=== PATIENT | male | born 1985 | race Two or more races ===

== ENCOUNTER 2025-01-28 00:48 | Inpatient (IN) | payer OTHER ==
[~2025-01-28] VITALS: Ht 157.5 cm; Wt 162.9 kg
[2025-01-28] VITALS (8 sets, daily range): BP systolic 133–145; BP diastolic 72–84; PULSE 68–97; RESP 16–24; TEMP 97.6–98.9; O2SAT 94–97
--- NOTE | 2025-01-28 01:15 | ED.PDOC ---
HPI Comments 39-year-old male with a history of CAD, mi status post stent x3, morbid obesity, hypertension, diabetes and dyslipidemia, brought in by self complaining of chest pain. Patient states he was at rest at his desk at work several hours ago when he developed left-sided chest pain, intermittent, pressure-like, radiating to his left arm, associated with headaches and shortness of breath. Patient states he had similar symptoms with his previous KS. Patient also notes a painful and itchy rash on his right leg that he noticed yesterday morning. Chief Complaint: Chest Pain Time Seen by MD: :14 Reviewed Notes: Nurses Notes Allergies: Coded Allergies: Lisinopril (Verified Allergy, Unknown, 02/18/16) Home Meds No Active Prescriptions or Reported Meds Information Source: Patient Mode of Arrival: Ambulatory Severity: Moderate Timing: Hours Duration: Intermittent Prehospital treatment: None Location: Chest (L) Radiation: Arm (L) Quality: Pressure, Tightness Onset: At Rest Cardiac Risk Factors: Hyperlipidemia, HTN, Diabetes PE Risk Factors: None History of: Similar pain in past, KS Associated Signs and Symptoms: SOB Past Medical History PAST MEDICAL HISTORY: CAD, DM, High Lipids, HTN, KS Surgical History: PTCA Family History Family History: Reviewed,noncontributory to illness Social History Smoker: Non-Smoker Alcohol: Rarely Drugs: Marijuana Lives In: Home Constitutional: denies: chills, diaphoresis, fatigue, fever, malaise, sweats, weakness, others EENTM: denies: blurred vision, double vision, ear bleeding, ear discharge, ear drainage, ear pain, ear ringing, eye pain, eye redness, hearing loss, mouth pain, mouth swelling, nasal discharge, nose bleeding, nose congestion, nose pain, photophobia, tearing, throat pain, throat swelling, voice changes, others Respiratory: reports: SOB at rest, shortness of breath; denies: cough, hemoptysis, orthopnea, SOB with excertion, stridor, wheezing, others Cardiovascular: reports: chest pain; denies: dizzy spells, diaphoresis, Dyspnea on exertion, edema, irregular heart beat, left arm pain, lightheadedness, palpitations, PND, syncope, others Gastrointestinal: denies: abdomen distended, abdominal pain, blood streaked bowels, constipated, diarrhea, dysphagia, difficulty swallowing, hematemesis, melena, nausea, poor appetite, poor fluid intake, rectal bleeding, rectal pain, vomiting, others Genitourinary: denies: burning, dysuria, flank pain, frequency, hematuria, incontinence, penile discharge, penile sore, pain, testicle pain, testicle swelling, urgency, others Neurological: reports: headache; denies: dizziness, fainting, left sided numbness, left sided weakness, numbness, paresthesia, pre-existing deficit, right sided numbness, right sided weakness, seizure, speech problems, tingling, tremors, weakness, others Musculoskeletal: denies: back pain, gout, joint pain, joint swelling, muscle pain, muscle stiffness, neck pain, others Integumetry: reports: rash (Right lower leg); denies: bruises, change in color, change in hair/nails, dryness, laceration, lesions, lumps, wounds, others Allergic/Immunocompromised: denies: Difficulty Healing, Frequent Infections, Hives, Itching, others Hematologic/Lymphatic: denies: anemia, blood clots, easy bleeding, easy bruising, swollen glands, others Endocrine: denies: excessive hunger, excessive sweating, excessive thirst, excessive urination, flushing, intolerance to cold, intolerance to heat, unexplained weight gain, unexplained weight loss, others Psychiatric: denies: anxiety, bipolar disorder, depression, hopeless, panic disorder, schizophrenia, sleepless, suicidal, others Physical Exam General Appearance: No Apparent Distress, Obese HEENT: Other (Pupils and face symmetric. Moist mucous membranes.) Neck: Full Range of Motion, Normal Inspection Respiratory: Lungs Clear, No Accessory Muscle Use, No Respiratory Distress, Normal Breath Sounds Cardiovascular: No Edema, No JVD, Regular Rate/Rhythm Breast Exam: Deferred Gastrointestinal: Non Tender, Soft Genitalia: Deferred Pelvic: Deferred Rectal: Deferred Extremities: Normal range of motion, No pedal edema, Other (Erythematous patchy raised rash localized on the anterior aspect of the right leg) Neurologic: Alert (Oriented x4), Normal Affect, Normal Mood, Other (Ambulatory) Cerebellar Function: NOT DONE Reflexes: NOT DONE Skin: Dry, Rash (Mildly tender erythematous patchy raised rash on the anterior aspect of the right leg. No edema, fluctuance or discharge.), Warm Lymphatic: NOT DONE EKG EKG : Comments Sinus tach, rate 141, normal intervals, left axis deviation, ST elevation in inferior leads with inferior Q-waves, other nonspecific T change. Was a procedure done? Was a procedure done?: No CP Differential Dx Differential Diagnosis: Angina, Anxiety / Panic Attack, KS, Pulmonary Embolus Differential Diagnosis: CHF Differential Diagnosis: Angina, Chest Wall Pain, Costochondritis, Esophageal reflux/spasm, Gastritis, Myocardial Infarction, Pericarditis, Pneumonia Comment Cellulitis, folliculitis, contact dermatitis, among others X-Ray, Labs, Meds, VS Vital Signs Date Time Temp Pulse Resp B/P (MAP) Pulse Ox O2 Delivery O2 Flow Rate FiO2 01/28/25 03:57 92 01/28/25 02:44 95/42 01/28/25 02:04 137 20 122/75 (91) 93 01/28/25 02:03 122/75 01/28/25 01:47 135 01/28/25 00:53 141 01/28/25 00:50 101.0 140 20 148/97 (114) 96 101.0 Lab Test 01/28/25 01:44 01/28/25 01:40 01/28/25 00:58 01/28/25 00:52 Range/Units Troponin I High Sensitivity 9 8 </=54 ng/L Lactic Acid Level 2.0 0.4-2.0 mmol/L POC Glucose 154 H 70-106 mg/dl White Blood Count 21.0 H 4.4-10.8 10^3/uL Red Blood Count 6.31 H 4.5-5.90 10^6/uL Hemoglobin 18.4 H 13.5-17.5 g/dL Hematocrit 53.8 H 41.0-53.0 % Mean Corpuscular Volume 85.3 80.0-100.0 fL Mean Corpuscular Hemoglobin 29.1 28.0-32.0 pg Mean Corpuscular Hemoglobin Concent 34.1 32.0-36.0 g/dL Red Cell Distribution Width 14.1 11.8-14.3 % Platelet Count 229 140-450 10^3/uL Mean Platelet Volume 8.6 6.9-10.8 fL Neutrophils (%) (Auto) 89.5 H 37.0-80.0 % Lymphocytes (%) (Auto) 6.2 L 10.0-50.0 % Monocytes (%) (Auto) 3.6 0.0-12.0 % Eosinophils (%) (Auto) 0.4 0.0-7.0 % Basophils (%) (Auto) 0.3 0.0-2.0 % Neutrophils # (Auto) 18.8 H 1.6-8.6 10 ^3/uL Lymphocytes # (Auto) 1.3 0.4-5.4 10 ^3/uL Monocytes # (Auto) 0.8 0-1.3 10 ^3/uL Eosinophils # (Auto) 0.1 0-0.8 10 ^3/uL Basophils # (Auto) 0.1 0-0.2 10 ^3/uL Nucleated Red Blood Cells 0.2 % Prothrombin Time 11.3 9.3-11.8 sec Prothrombin Time INR 1.07 0.9-1.15 Activated Partial Thromboplast Time 28.3 24.5-34.5 SEC Sodium Level 134 L 136-145 mmol/L Potassium Level 4.4 3.5-5.1 mmol/L Chloride Level 98 98-107 mmol/L Carbon Dioxide Level 27 20-31 mmol/L Anion Gap 9 5-15 Blood Urea Nitrogen 13 9-23 mg/dL Creatinine 1.06 0.700-1.30 mg/dL Glomerular Filtration Rate Calc 90 >90 mL/min BUN/Creatinine Ratio 12.3 10.0-20.0 Serum Glucose 152 H 74-106 mg/dL Calcium Level 9.9 8.7-10.4 mg/dL B-Type Natriuretic Peptide 36.20 0-100 pg/mL Test 01/28/25 00:50 Range/Units Urine Color Light-yellow Yellow Urine Clarity Clear Clear Urine pH 6.0 5.0-9.0 Urine Specific [place] 1.007 1.001-1.035 Urine Protein Trace H Negative Urine Ketones Negative Negative Urine Blood Negative Negative /uL Urine Nitrite Negative Negative Urine Bilirubin Negative Negative Urine Urobilinogen Normal Negative mg/dL Urine Leukocyte Esterase Negative Negative /uL Urine RBC <1 0 - 3 /hpf Urine Microscopic WBC < 1 0-3 /HPF Urine Squamous Epithelial Cells None seen <5 /hpf Urine Bacteria None seen None Seen /hpf Urine Glucose Normal Normal mg/dL Current Medications Medications (Trade) Dose Ordered Sig/Shakeel Route Start Time Stop Time Status Last Admin Aspirin 325 mg ONCE ONCE PO 01/28/25 01:15 01/28/25 01:16 DC 01/28/25 01:34 Nitroglycerin (Nitro-Bid) 1 pkg ONCE ONCE TD 01/28/25 01:15 01/28/25 01:16 DC 01/28/25 02:03 Acetaminophen/ Hydrocodone Bitart ([place] 5/325MG Tab) 1 tab ONCE ONCE PO 01/28/25 01:15 01/28/25 01:16 DC 01/28/25 01:35 Clindamycin Phosphate 50 ml @ 50 mls/hr ONCE ONCE IV 01/28/25 01:15 01/28/25 02:14 DC 01/28/25 02:00 Acetaminophen (Tylenol Tablet) 650 mg ONCE ONCE PO 01/28/25 02:45 01/28/25 02:46 DC 01/28/25 02:51 Sodium Chloride 1,650 ml @ 1,650 mls/hr ONCE ONCE IV 01/28/25 03:00 01/28/25 03:59 DC 01/28/25 02:57 PROCEDURE(s): CXRP - CHEST PORTABLE REASON: cp ORDER NUMBER(s): [id number], ACCESSION NUMBER(s): [id number] EXAM: XY CHEST PORTABLE CLINICAL HISTORY: cp TECHNIQUE: Single AP view of the chest WID: COMPARISON: None FINDINGS: Lines and tubes: None Chest: The heart size and pulmonary vasculature is within normal limits. No pleural effusion, pneumothorax, or consolidation. The osseous structures are grossly intact. IMPRESSION: No acute cardiopulmonary abnormality. X-Ray, Labs, Meds, VS Comment 39-year-old male with a history of hypertension, diabetes, dyslipidemia, CAD, [place] status post stent x3 complaining of chest pain and also reporting a right leg rash Vitals remarkable for temperature 101, heart rate 140, BP 148/97 Exam remarkable for tachycardia and a right leg erythematous raised rash Rhythm strip independently interpreted by me: Sinus tach, rate 141, no ectopy. Chest x-ray unremarkable CBC remarkable for WBC 21, metabolic panel remarkable for sodium 134, troponin negative x2, BNP normal, lactate normal and UA unremarkable Patient treated with the following in the ED: Aspirin 325 mg p.o., nitro bid 1/2 inch to chest wall, [place] 5/325 mg p.o., Tylenol 650 mg p.o. , clindamycin 900 mg IV, cefepime 2 g IV, 30 cc/kilogram normal saline bolus IV On re-evaluation, tachycardia has resolved, patient is afebrile with stable vitals. Chest pain has improved. Plan is to admit the patient Cardiology evaluation and IV antibiotics. Time of 1ST Reevaluation: 01:10 Reevaluation 1ST: Unchanged Time of 2ND Reevaluation: 02:47 Reevaluation 2ND: Improved Patient Education/Counseling: Diagnosis, Treatment Family Education/Counseling: No Family Present SEPSIS Sepsis Screen Date sepsis recognized/suspect: Jan 28, 2025 Time Sepsis recognized/suspect: 02:45 Physician Orders Electrocardigram (01/28/25 00:50) Electrocardigram (01/28/25 01:50) Electrocardigram (01/28/25 03:50) Chest Portable (01/28/25 01:09) Blood Culture (01/28/25 01:09) Cefepime 1gm/ 50ml (Maxipime 1gm/50ml) (01/28/25 06:00) Notify Md If Map <65 Or Bp<90 (01/28/25 02:41) If Map<65 Start Vasopressor (01/28/25 02:41) Vital Signs Date Time Temp Pulse Resp B/P (MAP) Pulse Ox O2 Delivery O2 Flow Rate FiO2 01/28/25 03:57 92 01/28/25 02:44 95/42 01/28/25 02:04 137 20 122/75 (91) 93 01/28/25 02:03 122/75 01/28/25 01:47 135 01/28/25 00:53 141 01/28/25 00:50 101.0 140 20 148/97 (114) 96 101.0 Laboratory Tests Test 01/28/25 00:52 01/28/25 01:40 White Blood Count 21.0 10^3/uL (4.4-10.8) H Lactic Acid Level 2.0 mmol/L (0.4-2.0) Medications Medications Dose Ordered Sig/Shakeel Route Start Time Stop Time Status Last Admin Dose Admin Acetaminophen 650 mg ONCE ONCE PO 01/28/25 02:45 01/28/25 02:46 DC 01/28/25 02:51 Acetaminophen/ Hydrocodone Bitart 1 tab ONCE ONCE PO 01/28/25 01:15 01/28/25 01:16 DC 01/28/25 01:35 Aspirin 325 mg ONCE ONCE PO 01/28/25 01:15 01/28/25 01:16 DC 01/28/25 01:34 Clindamycin Phosphate 50 ml @ 50 mls/hr ONCE ONCE IV 01/28/25 01:15 01/28/25 02:14 DC 01/28/25 02:00 Nitroglycerin 1 pkg ONCE ONCE TD 01/28/25 01:15 01/28/25 01:16 DC 01/28/25 02:03 Sodium Chloride 1,650 ml @ 1,650 mls/hr ONCE ONCE IV 01/28/25 03:00 01/28/25 03:59 DC 01/28/25 02:57 Reassessment Post Fluid SEPSIS FOCUS EXAM(REASSESSMENT Sepsis reassessment focused exam completed. Date: 01/28/25 Time 03:44 Departure 1 Departure Time of Disposition: 04:00 Impression: Primary Impression: Chest pain with high risk for cardiac etiology Additional Impression: Cellulitis of right lower extremity Disposition: ADMITTED INPATIENT Admit to: Tele Condition: Guarded e-Prescriptions No Active Prescriptions or Reported Meds Critical Care Note Critical Care Time?: Yes (35 min-critical care time only) Critical care comment: Critical care time including multiple bedside re-evaluations, review of lab and imaging studies, and discussion of the case with the accepting provider. Patient is high risk for hemodynamic and/or metabolic decompensation. Stability Stability form required: No Heart Score Heart Score: Heart Score Response (Comments) Value History Moderate Suspicious [address]-Deviation 2 Age <45 0 Risk Factors >3 or Hx ASHD 2 Troponin Normal limit 0 Total 5 I personally scribed for COLLEEN ROWE MD ([email or web address]) on 01/28/25 at 01:15. Electronically submitted by Vincent Tillman ([email or web address]). COLLEEN ROWE MD Jan 28, 2025 01:15
[2025-01-28 01:26] LABS: Hemoglobin 18.4 g/dL (13.5-17.5)
[2025-01-28 01:28] LABS: Hematocrit 53.8 % (41.0-53.0); Mean Corpuscular Hemoglobin 29.1 pg (28.0-32.0); Mean Corpuscular Volume 85.3 fL (80.0-100.0); Nucleated Red Blood Cells % 0.2 %
[2025-01-28 01:32] LABS: Chloride 98 mmol/L (98-107); Potassium 4.4 mmol/L (3.5-5.1)
[2025-01-28 01:33] LABS: Anion Gap 9 (5-15); Carbon Dioxide 27 mmol/L (20-31)
[2025-01-28 01:34] LABS: Calcium 9.9 mg/dL (8.7-10.4)
[2025-01-28] MEDS: HYDROcodone-ACET 5/325MG TAB PO ONE (01:35)
[2025-01-28 01:38] LABS: BUN/Creatinine Ratio 12.3 (10.0-20.0); Blood Urea Nitrogen 13 mg/dL (9-23)
[2025-01-28 01:39] LABS: Glucose 152 mg/dL (74-106); Sodium 134 mmol/L (136-145)
[2025-01-28] MEDS: CLINDAMYCIN 900MG IV 50 ML IV ONE (02:00)
[2025-01-28] MEDS: NITROGLYCERIN 2% OINT 1GM PKG TD ONE (02:03)
--- NOTE | 2025-01-28 02:30 | DVH ---
EXAM: XY CHEST PORTABLE CLINICAL HISTORY: cp TECHNIQUE: Single AP view of the chest WID: COMPARISON: None FINDINGS: Lines and tubes: None Chest: The heart size and pulmonary vasculature is within normal limits. No pleural effusion, pneumothorax, or consolidation. The osseous structures are grossly intact. IMPRESSION: No acute cardiopulmonary abnormality.
[2025-01-28] MEDS: ACETAMINOPHEN 325 MG TAB PO ONE (02:51)
[2025-01-28] MEDS: SODIUM CHLORIDE 0.9% 1,650 ML IV ONE (02:57)
[2025-01-28 03:07] LABS: INR 1.07 (0.9-1.15); Partial Thromboplastin Time 28.3 SEC (24.5-34.5); Prothrombin Time 11.3 sec (9.3-11.8)
[2025-01-28 05:26] LABS: Urine Protein, UAD TRACE (Negative)
[2025-01-28] MEDS: CEFEPIME 1GM/ 50ML 50 ML IV SCH (06:37)
--- NOTE | 2025-01-28 06:40 | ECG ---
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
--- NOTE | 2025-01-28 06:41 | ECG ---
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
--- NOTE | 2025-01-28 06:41 | ECG ---
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
--- NOTE | 2025-01-28 08:10 | DVHHP2 ---
History of Present Illness Reason for Visit: Chest pain with high risk for cardiac etiology History of Present Illness Patient is a 39-year-old male morbidly obese with past medical history of Coronary artery disease, DM, hyperlipidemia, hypertension, and [place] who presented to [facility] ED with complaint of chest pain. Patient reports he has been experiencing left-sided chest pain at rest, intermittent, pressure- like, radiating to his left arm, associated with headache, shortness of breaths, getting worse that prompted this visit. Patient was seen and evaluated in the ED, laboratory data shows WBC 21.0, hemoglobin 18.4, hematocrit 53.8, sodium 134, potassium 4.4, BUN 13, creatinine 1.06, glucose 152, calcium 9.9, troponin 9, BNP 36.20, blood pressure 120/80, heart rate 86, temperature 98.4 F, O2 saturation 97% on oxygen. Chest x-ray show no acute cardiopulmonary abnormality. Patient was given aspirin, please see medication orders section in the computer. On my assessment, patient denied chest pain, no headache, no dizziness, no diaphoresis, currently on oxygen, no nausea, no vomiting, no fever, no chills. Patient was admitted for further evaluation and medical management. Past Medical History CAD, DM, High Lipids, HTN, [place] Past Surgical History PTCA Family History Reviewed, noncontributory to the management of this case. Past Social History The patient lives at home, denies smoking, alcohol or illicit drugs abuse. Review of Systems Constitutional: Yes: Weakness; No: Fever, Chills, Sweats, Malaise, Other Eyes: No: Pain, Vision change, Conjunctivae inflammation, Eyelid inflammation, Other, Redness ENT: No: Ear pain, Ear discharge, Nose pain, Nose discharge, Nose congestion, Mouth pain, Mouth swelling, Throat pain, Throat swelling, Other Respiratory: Shortness of breath, Other (SOB at rest); No: Cough, Dry, SOB with excertion, Wheezing, Hemoptysis, Pleuritic Pain, Sputum, Wheezing Cardiovascular: Chest Pain; No: Palpitations, Orthopnea, Paroxysmal Noc. Dyspnea, Edema, Lt Headedness, Other Gastrointestinal: No: Nausea, Vomiting, Abdominal Pain, Diarrhea, Constipation, Melena, Hematochezia, Other Genitourinary: No Dysuria, No Frequency, No Incontinence, No Hematuria, No Retention, No Other Musculoskeletal: No: other, neck pain, shoulder pain, arm pain, back pain, hand pain, leg pain, foot pain Skin: Other (Rash right lower extremity); No: Rash, Lesions, Jaundice, Bruising Neurological: Other (Headache); No: Weakness, Numbness, Incoordination, Change in speech, Confusion, Seizures Allergies: Coded Allergies: Lisinopril (Verified Allergy, Unknown, 02/18/16) Medications Current Medications Medications Dose Ordered Sig/Shakeel Route Start Time Stop Time Status Last Admin Dose Admin Cefepime HCl 50 ml @ 12.5 mls/hr Q8HR IV 01/28/25 06:00 01/28/25 06:37 12.5 MLS/HR Exam Vital Signs Vital Signs Date Time Temp Pulse Resp B/P (MAP) Pulse Ox O2 Delivery O2 Flow Rate FiO2 01/28/25 07:44 86 24 97 Nasal Cannula* 2 28 01/28/25 07:43 98.4 120/80 (93) 98.4 General Appearance: Alert, Oriented X3, Cooperative, No acute distress HEENT: Atraumatic, PERRLA, EOMI, Mucous membr. moist/pink Respiratory: Normal air movement Cardiovascular: Regular rate, Normal S1, Normal S2, No murmurs Abdominal: Normal bowel sounds, Soft, No tenderness, No hepatospenomegaly, No masses Extremities: No clubbing, No cyanosis, No edema, Normal pulses, No tenderness/swelling Skin: No rashes, No significant lesion Neuro: Normal speech, Normal tone, Sensation intact, Cranial nerves 3-12 NL, Reflexes 2+, Other (Generalized weakness) Psych/Mental Status: Mental status NL, Mood NL Labs/Xrays Labs Test 01/28/25 01:44 01/28/25 01:40 01/28/25 00:58 01/28/25 00:52 Range/Units Troponin I High Sensitivity 9 </=54 ng/L Lactic Acid Level 2.0 0.4-2.0 mmol/L POC Glucose 154 H 70-106 mg/dl White Blood Count 21.0 H 4.4-10.8 10^3/uL Red Blood Count 6.31 H 4.5-5.90 10^6/uL Hemoglobin 18.4 H 13.5-17.5 g/dL Hematocrit 53.8 H 41.0-53.0 % Mean Corpuscular Volume 85.3 80.0-100.0 fL Mean Corpuscular Hemoglobin 29.1 28.0-32.0 pg Mean Corpuscular Hemoglobin Concent 34.1 32.0-36.0 g/dL Red Cell Distribution Width 14.1 11.8-14.3 % Platelet Count 229 140-450 10^3/uL Mean Platelet Volume 8.6 6.9-10.8 fL Neutrophils (%) (Auto) 89.5 H 37.0-80.0 % Lymphocytes (%) (Auto) 6.2 L 10.0-50.0 % Monocytes (%) (Auto) 3.6 0.0-12.0 % Eosinophils (%) (Auto) 0.4 0.0-7.0 % Basophils (%) (Auto) 0.3 0.0-2.0 % Neutrophils # (Auto) 18.8 H 1.6-8.6 10 ^3/uL Lymphocytes # (Auto) 1.3 0.4-5.4 10 ^3/uL Monocytes # (Auto) 0.8 0-1.3 10 ^3/uL Eosinophils # (Auto) 0.1 0-0.8 10 ^3/uL Basophils # (Auto) 0.1 0-0.2 10 ^3/uL Nucleated Red Blood Cells 0.2 % Prothrombin Time 11.3 9.3-11.8 sec Prothrombin Time INR 1.07 0.9-1.15 Activated Partial Thromboplast Time 28.3 24.5-34.5 SEC Sodium Level 134 L 136-145 mmol/L Potassium Level 4.4 3.5-5.1 mmol/L Chloride Level 98 98-107 mmol/L Carbon Dioxide Level 27 20-31 mmol/L Anion Gap 9 5-15 Blood Urea Nitrogen 13 9-23 mg/dL Creatinine 1.06 0.700-1.30 mg/dL Glomerular Filtration Rate Calc 90 >90 mL/min BUN/Creatinine Ratio 12.3 10.0-20.0 Serum Glucose 152 H 74-106 mg/dL Calcium Level 9.9 8.7-10.4 mg/dL B-Type Natriuretic Peptide 36.20 0-100 pg/mL Test 01/28/25 00:50 Range/Units Urine Color Light-yellow Yellow Urine Clarity Clear Clear Urine pH 6.0 5.0-9.0 Urine Specific [place] 1.007 1.001-1.035 Urine Protein Trace H Negative Urine Ketones Negative Negative Urine Blood Negative Negative /uL Urine Nitrite Negative Negative Urine Bilirubin Negative Negative Urine Urobilinogen Normal Negative mg/dL Urine Leukocyte Esterase Negative Negative /uL Urine RBC <1 0 - 3 /hpf Urine Microscopic WBC < 1 0-3 /HPF Urine Squamous Epithelial Cells None seen <5 /hpf Urine Bacteria None seen None Seen /hpf Urine Glucose Normal Normal mg/dL PATIENT: GLO PHAN ACCT: [id number] UNIT: [id number] : 1985 LOC: ER ROOM / BED: / AGE / SEX: 39 / M ADM STATUS: REG ER SERVICE 0109 ORDERING PHYSICIAN: COLLEEN ROWE MD PROCEDURE(s): CXRP - CHEST PORTABLE REASON: cp ORDER NUMBER(s): [id number], ACCESSION NUMBER(s): [id number] EXAM: XY CHEST PORTABLE CLINICAL HISTORY: cp TECHNIQUE: Single AP view of the chest WID: COMPARISON: None FINDINGS: Lines and tubes: None Chest: The heart size and pulmonary vasculature is within normal limits. No pleural effusion, pneumothorax, or consolidation. The osseous structures are grossly intact. IMPRESSION: No acute cardiopulmonary abnormality. Assessment/Plan Assessment/Plan Chest pain with high risk for cardiac etiology Cellulitis of right lower extremity Leukocytosis, unspecified Generalized weakness Plan 1. Admit to telemetry unit 2. Breathing treatment 3. Pain control management 4. IV antibiotic management 5. Management of fluids and electrolytes 6. Consultation for hospitalist 7. Diagnostic test chest x-ray 8. DVT prophylaxis-on aspirin 9. Repeat labs CBC, CMP in a.m. 10. Home medication reviewed and reconciled 11. Continue with current medical management 12. Treatment plan discussed with patient and RN. Patient verbalized understanding. Plan discussed with: Patient, Other (RN) Problem List: (1) Chest pain with high risk for cardiac etiology (2) Cellulitis of right lower extremity (3) Leukocytosis, unspecified (4) Generalized weakness Date of Service: Jan 28, 2025 Billing Provider: TATA RAZA DNP Common Visit Codes: [id number] INP/OBS CARE (HIGH) TATA RAZA DNP Jan 28, 2025 08:10
[2025-01-28] MEDS ORDERED: ACETAMINOPHEN 325 MG TAB PO PRN (08:15)
[2025-01-28] MEDS ORDERED: DEXTROSE (50%) 50ML SYRG IV PRN (08:15)
[2025-01-28] MEDS ORDERED: hydrALAZINE HCL 20 MG/ML VL IV PRN (08:15)
[2025-01-28] MEDS ORDERED: ONDANSETRON HCL 4 MG/2 ML VIAL IV PRN (08:15)
[2025-01-28] MEDS ORDERED: MORPHINE SULFATE INJ 2 MG/ml SYRG IV PRN (08:15)
[2025-01-28] MEDS ORDERED: DOCUSATE SOD 100 MG CAP PO PRN (08:15)
[2025-01-28] MEDS ORDERED: NITROGLYCERIN 0.4 MG SL TAB SL PRN (08:15)
[2025-01-28] MEDS: SODIUM CHLORIDE 0.9% 1,000 ML IV SCH (09:00)
[2025-01-28] MEDS: METOPROLOL TARTRATE 25 MG TAB PO SCH (10:10)
[2025-01-28] MEDS: InsuLIN REG 1unit/0.01ml Soln (100units/ml) SC SCH ×2 (11:30→22:32)
[2025-01-28] MEDS ORDERED: ATOR20TA50 PO (11:31)
[2025-01-28] MEDS ORDERED: ASPI-325 PO (11:31)
[2025-01-28] MEDS ORDERED: METF-370 PO (11:31)
[2025-01-28] MEDS ORDERED: METO-158 PO (11:31)
[2025-01-28] MEDS: ACCU-CHEK COMFORT CURVE STRIP VI SCH (11:40)
[2025-01-28] MEDS ORDERED: SEMA2INJ3 (12:02)
[2025-01-28] MEDS: HYDROcodone-ACET 5/325MG TAB PO PRN (16:31)
[2025-01-28] MEDS: ATORVASTATIN 20 MG TAB PO SCH (22:34)
[2025-01-29] VITALS (8 sets, daily range): BP systolic 114–141; BP diastolic 60–91; PULSE 67–99; RESP 17–19; TEMP 97.7–98.4; O2SAT 92–100
[2025-01-29 06:03] LABS: Hematocrit 44.2 % (41.0-53.0); Hemoglobin 15.9 g/dL (13.5-17.5); Mean Corpuscular Hemoglobin 30.5 pg (28.0-32.0); Mean Corpuscular Volume 84.9 fL (80.0-100.0); Nucleated Red Blood Cells % 0.0 %
[2025-01-29 06:22] LABS: Alanine Aminotransferase 23 U/L (7-40); Albumin 4.4 g/dL (3.2-4.8); Alkaline Phosphatase 75 U/L (46-116); Calcium 9.9 mg/dL (8.7-10.4); Carbon Dioxide 26 mmol/L (20-31); Chloride 102 mmol/L (98-107)
[2025-01-29 06:23] LABS: Anion Gap 9 (5-15); BUN/Creatinine Ratio 12.0 (10.0-20.0); Bilirubin, Total 0.9 mg/dL (0.2-1.0); Blood Urea Nitrogen 11 mg/dL (9-23); Glucose 107 mg/dL (74-106); Potassium 4.3 mmol/L (3.5-5.1); Sodium 137 mmol/L (136-145); Total Protein 6.7 g/dL (5.7-8.2)
--- NOTE | 2025-01-29 11:27 | DVHPN2 ---
Reviewed: Care Plan, H&P, Labs, Medications, Previous Orders, Radiology Changes from previous H/P or p: No Changes General: Per HPI Eyes: No Pain, No Vision change, No Conjunctivae inflammation, No Eyelid inflammation, No Other, No Redness ENT: No Ear pain, No Ear discharge, No Nose pain, No Nose discharge, No Nose congestion, No Mouth pain, No Mouth swelling, No Throat pain, No Throat swelling, No Other Cardiovascular: Chest Pain; No Palpitations, No Orthopnea, No Paroxysmal Noc. Dyspnea, No Edema, No Lt Headedness, No Other Respiratory: No Cough, No Dry; Shortness of breath; No SOB with excertion, No Wheezing, No Hemoptysis, No Pleuritic Pain, No Sputum; Other (SOB at rest) Gastrointestinal: No Nausea, No Vomiting, No Abdominal Pain, No Diarrhea, No Constipation, No Melena, No Hematochezia, No Other Genitourinary: No Dysuria, No Frequency, No Incontinence, No Hematuria, No Retention, No Other Musculoskeletal: No other, No neck pain, No shoulder pain, No arm pain, No back pain, No hand pain, No leg pain, No foot pain Skin: No Rash, No Lesions, No Jaundice, No Bruising; Other (Rash right lower extremity) Objective Vitals Vital Signs Date Time Temp Pulse Resp B/P (MAP) Pulse Ox O2 Delivery O2 Flow Rate FiO2 01/29/25 10:40 91 127/80 01/29/25 09:00 98.3 19 97 98.3 01/29/25 07:57 Room Air* 0 21 Intake/Output Intake and Output 01/29/25 07:00 Intake Total 1610.0 ml Output Total 900 ml Balance 710.0 ml Intake Oral 1000 ml IV Total 610.0 ml Output Urine Total 900 ml Medications Current Medications Medications Dose Ordered Sig/Shakeel Route Start Time Stop Time Status Last Admin Dose Admin Cefepime HCl 50 ml @ 12.5 mls/hr Q8HR IV 01/28/25 06:00 01/29/25 05:50 12.5 MLS/HR Aspirin 81 mg DAILY PO 01/28/25 10:00 01/29/25 10:40 81 MG Atorvastatin Calcium 20 mg HS PO 01/28/25 22:00 01/28/25 22:34 20 MG Metoprolol Tartrate 25 mg BID PO 01/28/25 10:00 01/29/25 10:40 25 MG Hydralazine HCl 10 mg Q6HP PRN IV 01/28/25 08:15 Diagnostic Test (Pha) 1 strip ACHS 01/28/25 11:30 01/29/25 05:44 1 STRIP Insulin Human Regular HS SC 01/28/25 22:00 01/28/25 22:32 3 UNITS Insulin Human Regular AC SC 01/28/25 11:30 01/29/25 05:48 2 UNITS Dextrose 50 ml UD PRN IV 01/28/25 08:15 Sodium Chloride 1,000 ml @ 60 mls/hr [id number] IV 01/28/25 08:15 01/28/25 09:00 60 MLS/HR Acetaminophen/ Hydrocodone Bitart 1 tab Q4HP PRN PO 01/28/25 08:15 01/28/25 22:35 1 TAB Ondansetron HCl 4 mg Q4HP PRN IV 01/28/25 08:15 Docusate Sodium 100 mg BIDPRN PRN PO 01/28/25 08:15 Acetaminophen 650 mg Q6HP PRN PO 01/28/25 08:15 Nitroglycerin 0.4 mg Q5MINP PRN SL 01/28/25 08:15 Morphine Sulfate 2 mg Q30M PRN IV 01/28/25 08:15 Laboratory Results Laboratory Tests 01/29/25 04:31 Chemistry Test 01/29/25 04:31 Albumin 4.4 g/dL (3.2-4.8) Calcium Level 9.9 mg/dL (8.7-10.4) Total Protein 6.7 g/dL (5.7-8.2) LFT Test 01/29/25 04:31 Alanine Aminotransferase (ALT) 23 U/L (7-40) Alkaline Phosphatase 75 U/L (46-116) Aspartate Amino Transferase (AST) 18 U/L (13-40) Total Bilirubin 0.9 mg/dL (0.2-1.0) Urinalysis Test 01/28/25 00:50 Urine Color Light-yellow (Yellow) Urine Clarity Clear (Clear) Urine pH 6.0 (5.0-9.0) Urine Specific [place] 1.007 (1.001-1.035) Urine Protein Trace (Negative) H Urine Ketones Negative (Negative) Urine Blood Negative /uL (Negative) Urine Nitrite Negative (Negative) Urine Bilirubin Negative (Negative) Urine Urobilinogen Normal mg/dL (Negative) Urine Leukocyte Esterase Negative /uL (Negative) Urine RBC <1 /hpf (0 - 3) Urine Microscopic WBC < 1 /HPF (0-3) Urine Squamous Epithelial Cells None seen /hpf (<5) Urine Bacteria None seen /hpf (None Seen) Urine Glucose Normal mg/dL (Normal) Microbiology Microbiology Date/Time Source Procedure Growth Status 01/28/25 01:44 Blood Blood Culture - Preliminary NO GROWTH AFTER 24 HOURS OF INCUBATION. Resulted Assessment/Plan Assessment/Plan Chest pain with high risk for cardiac etiology Cellulitis of right lower extremity Leukocytosis, unspecified Generalized weakness 01/29/2025: Continue with IV antibiotics. I have marked the area of cellulitis. We will assess daily for improvement Patient has history of cardiac stent x3 in came in initially with complaint of chest pain. We will consult Cardiology. Obtain echo also. Patient's has not had an echo in the past six months Plan discussed with: Patient Date of Service: Jan 29, 2025 Billing Provider: GIO ANDERSON DO Common Visit Codes: [id number] INP/OBS CARE(HIGH) GIO ANDERSON DO Jan 29, 2025 11:27
--- NOTE | 2025-01-29 13:00 | DVHINCON2 ---
Date Seen: Jan 29, 2025 Referring Physician MD Kinza Reason for Consultation Chest pain, rule out ACS History of Present Illness This is a 39-year-old male patient who presents to the emergency room with chief complaint of chest pain. The patient reports that the chest pain began on the day of emergency room arrival while he was at work. The patient works for a [employer]. He states that the pain was unprovoked, intermittent, tight in nature, midsternal with radiation to the left side of his chest. Associated symptoms include left arm pain, dizziness, and shortness of breath. Incidentally, the patient also complains of right lower extremity pain and pruritus. The patient drove himself to the emergency room for further evaluation. Initial twelve lead electrocardiogram reveals sinus tachycardia with some ST segment changes seen to inferior leads (as reviewed with production coordinator). Troponin levels have been negative. Significant past medical history includes coronary artery disease status post PTCA x3 ELIJAH (on aspirin), myocardial infarction, hypertension, dyslipidemia, type 2 diabetes mellitus, and morbid obesity. The patient states that he had a heart attack at 23 years old at which time he underwent a coronary angiogram and had three stents placed. He states that since this time, he has not routinely followed up with a production coordinator. Past Medical History Past medical history reviewed. No other significant than mentioned above. Past Surgical History Denies any previous surgeries Family History: Obesity G8 MOTHER Family History Family history reviewed. Social History Admits to occasional marijuana use, denies any other illicit drugs Denies any alcohol use Denies any tobacco use Allergies: Coded Allergies: Lisinopril (Verified Allergy, Unknown, 02/18/16) Home Meds Reported Medications Semaglutide (Ozempic) 2 Mg/3 Ml Inj 01/28/25 Metformin Hydrochloride (Metformin Hcl) 500 Mg Tab, 1 TAB PO BID 01/28/25 Aspirin (Aspirin Low Dose) 81 Mg Tab, 1 TAB PO DAILY 01/28/25 Atorvastatin Calcium (ATORVASTATIN CALCIUM) 20 Mg Tab, 1 TAB PO DAILY 01/28/25 Metoprolol Tartrate (Metoprolol Tartrate) 50 Mg Tab, 1 TAB PO BID 01/28/25 Home Meds Home medications reviewed. Current Medications Current Medications Medications (Trade) Dose Ordered Sig/Shakeel Route PRN Reason Start Time Stop Time Status Last Admin Atorvastatin Calcium (Lipitor) 20 mg HS PO 01/28/25 22:00 01/28/25 22:34 Insulin Human Regular (InsuLIN R) HS SC 01/28/25 22:00 01/28/25 22:32 Review of Systems Constitutional: No symptom reported Ears, Nose, & Throat: No symptom reported Eyes: No symptom reported Neurological: Dizziness Pulmonary/Respiratory: Shortness of breath Cardiovascular: Chest pain Gastrointestinal: No symptom reported Genitourinary: No symptom reported Musculoskeletal: No symptom reported Skin: No symptom reported Psychiatric: No symptom reported Endocrine: No symptom reported Hematologic/Lymphatic: No symptom reported Vital Signs Vital Signs Date Time Temp Pulse Resp B/P (MAP) Pulse Ox O2 Delivery O2 Flow Rate FiO2 01/29/25 10:40 91 127/80 01/29/25 09:00 98.3 19 97 98.3 01/29/25 07:57 Room Air* 0 21 Physical Exam General Appearance: Cooperative. Morbidly obese Pulmonary/Respiratory: Clear, bilateral breaths sounds. Cardiovascular/Chest: Regular rate and rhythm. Peripheral Pulses: 2+ Radial (R). 2+ Radial (L). 2+ Pedal (R). 2+ Pedal (L) Abdominal Exam: Normal bowel sounds. Ankle Exam: Negative ankle edema Lower extremities: Negative lower extremity edema Neuro/Mental Status: A/OX4, coherent. Thoughts/Psych: Normal thought pattern. Appropriate mood and affect. Good judgment and insight. Appearance: No acute distress. Skin Exam: Right lower extremity erythema. Skin warm and dry Labs/Diagnostic Data Labs Test 01/29/25 11:27 01/29/25 04:31 01/28/25 01:44 01/28/25 01:40 Range/Units POC Glucose 119 H 70-106 mg/dl White Blood Count 9.2 # 4.4-10.8 10^3/uL Red Blood Count 5.21 4.5-5.90 10^6/uL Hemoglobin 15.9 13.5-17.5 g/dL Hematocrit 44.2 # 41.0-53.0 % Mean Corpuscular Volume 84.9 80.0-100.0 fL Mean Corpuscular Hemoglobin 30.5 28.0-32.0 pg Mean Corpuscular Hemoglobin Concent 35.9 32.0-36.0 g/dL Red Cell Distribution Width 14.3 11.8-14.3 % Platelet Count 160 140-450 10^3/uL Mean Platelet Volume 8.5 6.9-10.8 fL Neutrophils (%) (Auto) 72.1 37.0-80.0 % Lymphocytes (%) (Auto) 16.8 10.0-50.0 % Monocytes (%) (Auto) 8.8 0.0-12.0 % Eosinophils (%) (Auto) 2.0 0.0-7.0 % Basophils (%) (Auto) 0.3 0.0-2.0 % Neutrophils # (Auto) 6.7 1.6-8.6 10 ^3/uL Lymphocytes # (Auto) 1.6 0.4-5.4 10 ^3/uL Monocytes # (Auto) 0.8 0-1.3 10 ^3/uL Eosinophils # (Auto) 0.2 0-0.8 10 ^3/uL Basophils # (Auto) 0 0-0.2 10 ^3/uL Nucleated Red Blood Cells 0.0 % Sodium Level 137 136-145 mmol/L Potassium Level 4.3 3.5-5.1 mmol/L Chloride Level 102 98-107 mmol/L Carbon Dioxide Level 26 20-31 mmol/L Anion Gap 9 5-15 Blood Urea Nitrogen 11 9-23 mg/dL Creatinine 0.92 0.700-1.30 mg/dL Glomerular Filtration Rate Calc 107 >90 mL/min BUN/Creatinine Ratio 12.0 10.0-20.0 Serum Glucose 107 H 74-106 mg/dL Calcium Level 9.9 8.7-10.4 mg/dL Total Bilirubin 0.9 0.2-1.0 mg/dL Aspartate Amino Transferase (AST) 18 13-40 U/L Alanine Aminotransferase (ALT) 23 7-40 U/L Alkaline Phosphatase 75 46-116 U/L Total Protein 6.7 5.7-8.2 g/dL Albumin 4.4 3.2-4.8 g/dL Troponin I High Sensitivity 9 </=54 ng/L Lactic Acid Level 2.0 0.4-2.0 mmol/L Test 01/28/25 00:52 01/28/25 00:50 Range/Units Prothrombin Time 11.3 9.3-11.8 sec Prothrombin Time INR 1.07 0.9-1.15 Activated Partial Thromboplast Time 28.3 24.5-34.5 SEC B-Type Natriuretic Peptide 36.20 0-100 pg/mL Urine Color Light-yellow Yellow Urine Clarity Clear Clear Urine pH 6.0 5.0-9.0 Urine Specific [place] 1.007 1.001-1.035 Urine Protein Trace H Negative Urine Ketones Negative Negative Urine Blood Negative Negative /uL Urine Nitrite Negative Negative Urine Bilirubin Negative Negative Urine Urobilinogen Normal Negative mg/dL Urine Leukocyte Esterase Negative Negative /uL Urine RBC <1 0 - 3 /hpf Urine Microscopic WBC < 1 0-3 /HPF Urine Squamous Epithelial Cells None seen <5 /hpf Urine Bacteria None seen None Seen /hpf Urine Glucose Normal Normal mg/dL Microbiology Date/Time Source Procedure Growth Status 01/28/25 01:44 Blood Blood Culture - Preliminary NO GROWTH AFTER 24 HOURS OF INCUBATION. Resulted Assessment Chest pain, rule out progressive coronary artery disease Rule out structural heart disease Coronary artery disease status post PTCA x3 ELIJAH (on ASA) Hypertension Dyslipidemia Right lower extremity cellulitis ?Obstructive sleep apnea Type 2 diabetes mellitus Morbidly obese Plan/Recommendation We will continue with the following plan/recommendations (Dr. Allred): * Transthoracic echocardiogram to evaluate cardiac function * Chest pain protocol * HEART score: 4 points (moderate score) * Single antiplatelet therapy and lipid-lowering agent * BP control * Close Cardiac surveillance * Nuclear stress test Case discussed with Dr. Allred. Given the patient's significant cardiac history and presenting symptoms, we will proceed with a nuclear stress test. Patient educated on the plan and is agreeable. Thank you for allowing us to care for this patient. Please call with any questions or concerns. Critical care time spent: 44 minutes This medical document was created using an electronic medical record system with voice recognition software and computerized dictation system. Although this document has been carefully reviewed, there might still be some phonetic and typographical errors. Occasional wrong-word or ``sound-alike substitutions may have occurred due to the inherent limitations of voice recognition software. These areas are purely typographical due to imperfections of the software programs and do not reflect any compromise in the patient's medical care. Please read the chart carefully and recognize, using context, where these substitutions have occurred. Plan discussed with: Patient NYHA Physical activity limitations: NA Date of Service: Jan 29, 2025 Billing Provider: KERWIN MOLINA Cardiology Common Codes: [id number] INP/OBS CARE (High) Cardiology Consultation Codes: [id number] CONSULT <45MIN KERWIN MOLINA [facility] Jan 29, 2025 13:00
--- NOTE | 2025-01-29 16:03 | DVHSR ---
APPROVED REPORT EXAM: Two-dimensional and M-mode echocardiogram with Doppler and color Doppler. Blood Pressure: 127/80 mmHg INDICATION Chest Pain RISK FACTORS Obesity: Height: 5'2", Weight: 359 DIMENSIONS LVDd5.4 (3.8-5.7cm)LA (2D)3.5 (1.9-4.0cm)Aortic Root3.7 (2.0-3.7cm) LVDs4.1 (2.5-4.0cm)LA (MM) (1.9-4.0cm)Aortic Cusp Exc1.8 (1.5-2.0cm) EF (%) 47.0 (55-70%)Rt. Atrium3.9 (1.9-4.0cm)Asc. Aorta cm IVSd1.4 (0.7-1.1cm)RV (D) (1.8-2.4cm) PWd1.2 (0.7-1.1cm) Mitral Valve MitralMitral Stenosis E wave0.86m/sMV Mean GR.mmHg A wave0.76m/sMV Peak GR.mmHg E/A ratio1.12D MVAcm2 DECEL [id number] 1/2 Timems Aortic Valve Aortic ValveAortic Stenosis V11.12m/Alanna Mean GR.6mmHg V21.66m/Alanna Peak GR.11mmHg LVOT Diameter2.0 (1.8-2.4cm)Doppler AVA2.12cm2 Pulmonic Valve V21.15m/s Other Information Technically limited study due to body habitus. Conclusion lvef 45% apex is hypokinetic normal rv function, RV enlarged
[2025-01-30] VITALS (7 sets, daily range): BP systolic 115–133; BP diastolic 64–86; PULSE 64–80; RESP 16–18; TEMP 37; O2SAT 96–100
[2025-01-30 06:10] LABS: Hematocrit 45.7 % (41.0-53.0); Hemoglobin 16.0 g/dL (13.5-17.5); Mean Corpuscular Hemoglobin 29.8 pg (28.0-32.0); Mean Corpuscular Volume 85.4 fL (80.0-100.0); Nucleated Red Blood Cells % 0.1 %
[2025-01-30 06:23] LABS: Chloride 104 mmol/L (98-107); Potassium 4.1 mmol/L (3.5-5.1); Sodium 139 mmol/L (136-145)
[2025-01-30 06:24] LABS: Anion Gap 10 (5-15); Calcium 8.9 mg/dL (8.7-10.4); Carbon Dioxide 25 mmol/L (20-31)
[2025-01-30 06:29] LABS: BUN/Creatinine Ratio 12.0 (10.0-20.0); Blood Urea Nitrogen 10 mg/dL (9-23); Glucose 103 mg/dL (74-106); Magnesium 2.0 mg/dL (1.6-2.6)
--- NOTE | 2025-01-30 07:19 | ECG ---
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
[2025-01-30 07:23] LABS: Triglycerides 154 mg/dL (< 150)
[2025-01-30 07:24] LABS: Cholesterol 150 mg/dL (< 200); HDL Cholesterol 34 mg/dL (40-59)
[2025-01-30] MEDS: REGADENOSON 0.4 MG/5 ML SYRG IV ONE ×2 (09:34→09:43)
--- NOTE | 2025-01-30 13:38 | DVHSR ---
APPROVED REPORT Exam: Nuclear Stress Test Indication: Chest pain Stress Tech: Velvet Barclay Ht: 5 ft 2 in Wt: 359 lbs BSA: 2.45 m2 HR: 71 bpm BP: 114/51 mmHg BMI: 65.65 Rhythm: NSR BBB Medical History Medical History: [place], HTN, DLD, DM2, OBESITY, JAYY Allergies: Lisinopril Stress Test Details Stress Test: Pharmacologic stress testing performed using 0.4 mg of regadenoson per 5 mL given IV ov er 10 seconds. Reason for pharmacologic stress test: Chest Pain. HR Resting HR: 71 bpmMax Heart Rate (APMHR): 179.275800 bpm Max HR Achieved: 102 bpmTarget HR (85% APMHR): 152.303277 bpm % of APMHR: 56.98 Recovery HR: 88 bpm BP Resting BP: 114/51 mmHg Recovery BP: 113/71 mmHg ECG Resting ECG: See Baseline, BBB Clinical Reason for Termination: Completed protocol Stress ECG Conclusion inferior infarct full thickness scar bassal lateral wall infarct lvef 44% no major ischemia NM EXAM: Myocardial Perfusion REST/STRESS Imaging Protocol: Rest Tc-99m/Stress Tc-99m 1 day Resting Data Rest SPECT myocardial perfusion imaging was performed in supine position 60 minutes following the int ravenous injection of 11.0 mCi of Tc-99m Sestamibi. Time of rest injection: 08:00 Date: 01/30/2025 Time of rest imagin:00 Date: 01/30/2025 Administration Route: IV Administration Site: Right Arm Pharmacologic Stress Pharmacologic stress test was performed by injecting Regadenoson 0.4 mg IV push followed by the intra venous injection of 35.5 mCi of Tc-99m Sestamibi. Time of stress injection: 09:45 Date: 01/30/2025 Time of stress imagin:45 Date: 01/30/2025 Administration Route: IV Administration Site: Right Arm Gated Stress SPECT was performed 60 minutes after stress injection. The images were gated to evaluate regional wall motion and calculate left ventricular ejection fracti on. Stress only was performed in the Supine position. Nuclear Conclusion Nuclear Findings: negative for ischemia inferior infarct full thickness scar bassal lateral wall infarct lvef 44% no major ischemia
[2025-01-30] MEDS: DOXYCYCLINE 100MG/100ML 100 ML IV ONE (16:00)
[2025-01-30] MEDS ORDERED: DOXY100C79 PO (16:56)
[2025-01-30] MEDS ORDERED: CEFD300C2 PO (16:56)
[2025-01-30] MEDS ORDERED: SACU1TAB PO (16:56)
--- NOTE | 2025-01-30 17:00 | DVHDS2 ---
Discharge Summary Date of Admission Jan 28, 2025 at 08:04 Date of Discharge: Jan 30, 2025 Labs/Diagnostic Data: Laboratory Results Test 01/30/25 05:58 01/30/25 05:09 01/29/25 04:31 01/28/25 01:44 POC Glucose 107 mg/dl (70-106) White Blood Count 8.0 10^3/uL (4.4-10.8) Red Blood Count 5.36 10^6/uL (4.5-5.90) Hemoglobin 16.0 g/dL (13.5-17.5) Hematocrit 45.7 % (41.0-53.0) Mean Corpuscular Volume 85.4 fL (80.0-100.0) Mean Corpuscular Hemoglobin 29.8 pg (28.0-32.0) Mean Corpuscular Hemoglobin Concent 34.9 g/dL (32.0-36.0) Red Cell Distribution Width 14.3 % (11.8-14.3) Platelet Count 162 10^3/uL (140-450) Mean Platelet Volume 8.5 fL (6.9-10.8) Neutrophils (%) (Auto) 65.2 % (37.0-80.0) Lymphocytes (%) (Auto) 22.4 % (10.0-50.0) Monocytes (%) (Auto) 9.4 % (0.0-12.0) Eosinophils (%) (Auto) 2.7 % (0.0-7.0) Basophils (%) (Auto) 0.3 % (0.0-2.0) Neutrophils # (Auto) 5.2 10 ^3/uL (1.6-8.6) Lymphocytes # (Auto) 1.8 10 ^3/uL (0.4-5.4) Monocytes # (Auto) 0.7 10 ^3/uL (0-1.3) Eosinophils # (Auto) 0.2 10 ^3/uL (0-0.8) Basophils # (Auto) 0 10 ^3/uL (0-0.2) Nucleated Red Blood Cells 0.1 % Sodium Level 139 mmol/L (136-145) Potassium Level 4.1 mmol/L (3.5-5.1) Chloride Level 104 mmol/L (98-107) Carbon Dioxide Level 25 mmol/L (20-31) Anion Gap 10 (5-15) Blood Urea Nitrogen 10 mg/dL (9-23) Creatinine 0.83 mg/dL (0.700-1.30) Glomerular Filtration Rate Calc 113 mL/min (>90) BUN/Creatinine Ratio 12.0 (10.0-20.0) Serum Glucose 103 mg/dL (74-106) Hemoglobin A1c 6.6 % A1C (<5.7) Calcium Level 8.9 mg/dL (8.7-10.4) Magnesium Level 2.0 mg/dL (1.6-2.6) Triglycerides Level 154 mg/dL (< 150) Cholesterol Level 150 mg/dL (< 200) LDL Cholesterol 96 mg/dL (< 100) HDL Cholesterol 34 mg/dL (40-59) Thyroid Stimulating Hormone (TSH) 2.29 uIU/mL (0.55-4.78) Total Bilirubin 0.9 mg/dL (0.2-1.0) Aspartate Amino Transferase (AST) 18 U/L (13-40) Alanine Aminotransferase (ALT) 23 U/L (7-40) Alkaline Phosphatase 75 U/L (46-116) Total Protein 6.7 g/dL (5.7-8.2) Albumin 4.4 g/dL (3.2-4.8) Troponin I High Sensitivity 9 ng/L (</=54) Test 01/28/25 01:40 01/28/25 00:52 01/28/25 00:50 Lactic Acid Level 2.0 mmol/L (0.4-2.0) Prothrombin Time 11.3 sec (9.3-11.8) Prothrombin Time INR 1.07 (0.9-1.15) Activated Partial Thromboplast Time 28.3 SEC (24.5-34.5) B-Type Natriuretic Peptide 36.20 pg/mL (0-100) Urine Color Light-yellow (Yellow) Urine Clarity Clear (Clear) Urine pH 6.0 (5.0-9.0) Urine Specific [place] 1.007 (1.001-1.035) Urine Protein Trace (Negative) Urine Ketones Negative (Negative) Urine Blood Negative /uL (Negative) Urine Nitrite Negative (Negative) Urine Bilirubin Negative (Negative) Urine Urobilinogen Normal mg/dL (Negative) Urine Leukocyte Esterase Negative /uL (Negative) Urine RBC <1 /hpf (0 - 3) Urine Microscopic WBC < 1 /HPF (0-3) Urine Squamous Epithelial Cells None seen /hpf (<5) Urine Bacteria None seen /hpf (None Seen) Urine Glucose Normal mg/dL (Normal) Other Laboratory Tests 01/30/25 05:09 Brief Hx & Hospital Course: 39-year-old male with a known history of diabetes mellitus type 2, hypertension, morbid obesity class three initiation with the hospital with chest pain. Patient does have known history of CAD status post PCI in the past. MmHg patient was admitted mildly elevated troponin. Cardiology was consulted. Patient underwent stress test which was negative for any ischemia. Patient is cleared by Cardiology to be discharged. Patient does have right lower extremity cellulitis p.o. antibiotics has been prescribed. Patient was recommended to follow up with the PCP in 1-2 weeks. Condition at Discharge: Stable Final Diagnosis/Problems List 1. Chest pain OK ruled out neck 2. CAD s/p PCI, 3. Diabetes mellitus type 2 4. Hypertension 5. Morbid obesity class three 6. Right lower extremity cellulitis Discharge Disposition: Home SNF Discharge Will this Physician continue t: No Discharge Instruct/Medications Diet: Cardiac 2g Na,low cholest Diet comment: diet Activity: No Restrictions, As Tolerated Follow Up/Referral: Follow with the PCP in one week or as scheduled. Medications: Resume medication as prescribed. New Medications: Cefdinir (Cefdinir) 300 Mg Cap 1 CAP PO BID for 5 Days, #10 CAP Doxycycline (Monohydrate) (Doxycycline) 100 Mg Cap 100 MG PO BID for 5 Days, #10 CAP Sacubitril-Valsartan (Entresto 24-26 mg) 1 Tab Tab 1 TAB PO BID for 30 Days, #60 TAB Continued Medications: Aspirin (Aspirin Low Dose) 81 Mg Tab 1 TAB PO DAILY Atorvastatin Calcium (Atorvastatin Calcium) 20 Mg Tab 1 TAB PO DAILY Metformin Hydrochloride (Metformin Hcl) 500 Mg Tab 1 TAB PO BID Metoprolol Tartrate (Metoprolol Tartrate) 50 Mg Tab 1 TAB PO BID Semaglutide (Ozempic) 2 Mg/3 Ml Inj Scheduled Aspirin (Aspirin Low Dose), 1 TAB PO DAILY, (Reported) Atorvastatin Calcium (Atorvastatin Calcium), 1 TAB PO DAILY, (Reported) Cefdinir (Cefdinir), 1 CAP PO BID Doxycycline (Monohydrate) (Doxycycline), 100 MG PO BID Metformin Hydrochloride (Metformin Hcl), 1 TAB PO BID, (Reported) Metoprolol Tartrate (Metoprolol Tartrate), 1 TAB PO BID, (Reported) Sacubitril-Valsartan (Entresto 24-26 mg), 1 TAB PO BID Miscellaneous Medications Semaglutide (Ozempic), (Reported) Discharge Statement: "Patient was advised to return to the ER or call 911 if any headaches, dizziness, shortness of breath, chest pain, abdominal pain, bleeding, fevers, or worsening of medical condition. Patient was counseled about treatment plan, medications, possible side effects, patientverbalized understanding. All questions were answered to the best of my ability. This discharge took greater then 30 minutes in planning, reviewing documentation, counseling the patient, and discussing with other team members." ASSESSMENT ASSESSMENT Assessment 1. Chest pain OK ruled out neck 2. CAD s/p PCI, 3. Diabetes mellitus type 2 4. Hypertension 5. Morbid obesity class three 6. Right lower extremity cellulitis Date of Service: Jan 30, 2025 Billing Provider: DARRICK PENA MD Common Visit Codes: 11662-HRC/OBS DISCH DAY >30min DARRICK PENA MD Jan 30, 2025 17:00
[2025-01-30] MEDS ORDERED: SACUBITRIL-VALSARTAN 24mg/26mg TAB PO SCH (22:00)
[2025-01-31] MEDS ORDERED: DOXYCYCLINE 100MG/100ML 100 ML IV SCH (04:00)
[2025-01-31] MEDS ORDERED: EMPAGLIFLOZIN 10 MG TAB PO SCH (10:00)
--- NOTE | 2025-02-02 12:02 | ECG ---
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
== END 2025-01-30 18:15 | disposition home or self-care (01) | DRG 313 ==
LOC: ER 00:48 → OVERFLOW 08:04 → TELE-WESTW 17:48
PROVIDERS: ADMIT Internal Medicine; ATTEND Internal Medicine
DX: R07.89 Other chest pain (principal); L03.115 Cellulitis of right lower limb; Z68.44 Body mass index [BMI] 60.0-69.9, adult; I25.10 Atherosclerotic heart disease of native coronary artery without angina pectoris; E66.813 Obesity, class 3; I10 Essential (primary) hypertension; E11.9 Type 2 diabetes mellitus without complications; E78.5 Hyperlipidemia, unspecified; Z95.5 Presence of coronary angioplasty implant and graft; I25.2 Old myocardial infarction; Z88.8 Allergy status to other drugs, medicaments and biological substances; Z79.02 Long term (current) use of antithrombotics/antiplatelets; Z79.899 Other long term (current) drug therapy; Z79.82 Long term (current) use of aspirin; Z79.84 Long term (current) use of oral hypoglycemic drugs
CPT/HCPCS: 36415; 71045; 78452; 80048; 80053; 80061; 81001; 82962; 83036; 83605; 83735; 83880; 84443; 84484; 85025; 85610; 85730; 87040; 93005; 93017; 93306; 96365; 99291; G0378; J1815; J3490